=== PATIENT | female | born 1960 | race Caucasian/White ===

== ENCOUNTER → 2017-09-23 11:54 | Outpatient (CLI) | payer MEDICAID | END | disposition home or self-care (01) | LOC: D.RT 06-01 11:00 → D.RAD 06-01 11:45 → D.RT 06-11 10:00 → D.RAD 06-11 11:15 → D.RT 07-29 13:00 → D.RAD 07-29 14:00 → D.RT 11:54 | DX: J44.9 Chronic obstructive pulmonary disease, unspecified (principal) ==